=== PATIENT | male | born 1990 | race African-American/Black ===

== ENCOUNTER 2016-05-12 08:59 | Emergency (ER) | payer OTHER ==
[~2016-05-12] VITALS: Ht 180.3 cm; Wt 97.5 kg
[2016-05-12 09:26] VITALS: BP 124/62
--- NOTE | 2016-05-12 09:31 | PHYS DOC ---
Past Medical History Past Medical History: No Pertinent History Past Surgical History: No Surgical History Alcohol Use: None Drug Use: None Adult General Chief Complaint Chief Complaint: SHOULDER INJURY [facility] HPI Patient is a 26 year old male who presents with injury. He states he's had issues over the years with his left shoulder hurting him and then Tuesday was playing football and he went one way and his opponent with the other and he twisted his arm/shoulder on his left side. He states been bothering him since then. He's been taking Advil without any relief. He states it's his top and posterior aspect of his shoulder that hurts and is made worse with repetitive motion such as lifting of which she has to do at work. He denies any numbness or tingling or weakness in his forearm. Review of Systems Review of Systems Constitutional: Denies fever or chills [] Eyes: Denies change in visual acuity, redness, or eye pain [] HENT: Denies nasal congestion or sore throat [] Respiratory: Denies cough or shortness of breath [] Cardiovascular: No additional information not addressed in HPI [] GI: Denies abdominal pain, nausea, vomiting, bloody stools or diarrhea [] : Denies dysuria or hematuria [] Musculoskeletal: Denies back pain positive for left shoulder pain Integument: Denies rash or skin lesions [] Neurologic: Denies headache, focal weakness or sensory changes [] Endocrine: Denies polyuria or polydipsia [] Allergies Allergies Allergies Coded Allergies Type Severity Reaction Last Updated Verified No Known Drug Allergies 05/12/16 No Physical Exam Physical Exam Constitutional: Well developed, well nourished, no acute distress, non-toxic appearance. [] HENT: Normocephalic, atraumatic, bilateral external ears normal, oropharynx moist, no oral exudates, nose normal. [] Eyes: PERRLA, EOMI, conjunctiva normal, no discharge. [] Neck: Normal range of motion, no tenderness, supple, no stridor. [] Cardiovascular:Heart rate regular rhythm, no murmur [] Lungs & Thorax: Bilateral breath sounds clear to auscultation [] Abdomen: Bowel sounds normal, soft, no tenderness, no masses, no pulsatile masses. [] Skin: Warm, dry, no erythema, no rash. [] Back: No tenderness, no CVA tenderness. [] Extremities: No tenderness, full range of motion of the left shoulder, no cyanosis, no clubbing, ROM intact, no edema, sensation intact to light touch, strength 5 out of 5 with abducting abducting flexion and extension of left arm and forearm. [] Neurologic: Alert and oriented X 3, normal motor function, normal sensory function, no focal deficits noted. [] Psychologic: Affect normal, judgement normal, mood normal. [] Current Patient Data Vital Signs Vital Signs Date Time Temp Pulse Resp B/P Pulse Ox O2 Delivery O2 Flow Rate FiO2 05/12/16 09:26 98.1 66 20 98 Room Air 98.1 EKG EKG [] Radiology/Procedures Radiology/Procedures [facility] [address] [place] [address] IMAGING REPORT Signed PATIENT: JOCE QUICK ACCOUNT: [id number] : 1990 LOCATION: ER AGE: 26 SEX: M EXAM STATUS: REG ER ORD. PHYSICIAN: STACEY ROJAS NP REASON: left shoulder pain with injury PROCEDURE: SHOULDER 2+V LEFT Left shoulder, 3 views, 05/12/2016: History: Shoulder injury, pain No fracture or dislocation is identified. The periarticular soft tissues are unremarkable. IMPRESSION: No significant left shoulder abnormality is detected. DICTATED and SIGNED BY: SHAUN ROCK MD DATE: 05/12/16 0940 CC: STACEY ROJAS NP; NO PCP ~ Impressions: Left shoulder pain Course & Med Decision Making Course & Med Decision Making Pertinent Labs and Imaging studies reviewed. (See chart for details) x-rays do not show any acute maladies his left shoulder. Exam is benign. He's likely has a rotator cuff injury or strain. He'll need to follow-up with his primary care physician within a month and if his shoulder is still bothering him he'll need a follow-up with him and likely have an MRI at that time. He can use 600 mg Advil every 8 hours for next 4-5 days, use ice or heat as preferred, he take [place] which narcotic pain medicine as directed. He is instructed not to drive his car while taking this medicine as it can impair judgment and make him sleepy. He is return back to ER for severe pain, weakness in his arm his fingers turned blue numb or has other concerns. Mary Lou Disclaimer Mary Lou Disclaimer This electronic medical record was generated, in whole or in part, using a voice recognition dictation system. Departure Departure Impression: Primary Impression: Left shoulder pain Disposition: HOME, SELF-CARE Condition: STABLE Patient Instructions: Rotator Cuff Injury Additional Instructions: You should follow up with primary care physician within next few weeks. If your shoulder still bothered you follow up sooner. You might need an MRI of your shoulder to see if there is any soft tissue injuries. The x-ray did not show anything broken in the emergency department. He can take 600 mg of Advil every 8 hours for next 4-5 days. Please drink. Last water while taking this high dose of medicine. He can take [place] which narcotic pain medicine as directed for pain. [place] can impair judgment and make you sleepy so please do not drive her car while taking this medicine. If pain gets worse, he have numbness tingling in her fingers, he fingers turning blue or your arm is weak. Other concerns please return back to emergency department. Scripts Hydrocodone/Apap 5-325 ([place] 5-325 Tablet)1 Each Tablet1-2 Tab PO Q6HRS PRN PAIN #14 TAB Prov:LAYLA COOMBS MD 05/12/16 LAYLA COOMBS MD May 12, 2016 09:31
--- NOTE | 2016-05-12 09:44 | RAD ---
Left shoulder, 3 views, 05/12/2016: History: Shoulder injury, pain No fracture or dislocation is identified. The periarticular soft tissues are unremarkable. IMPRESSION: No significant left shoulder abnormality is detected.
[2016-05-12] MEDS ORDERED: HYDR-971 PO (10:24)
== END 2016-05-12 10:39 | disposition home or self-care (01) ==
LOC: ER 08:59
DX: M25.512 Pain in left shoulder (principal); X50.3XXA Overexertion from repetitive movements, initial encounter; Y93.61 Activity, american tackle football; Y92.321 Football field as the place of occurrence of the external cause; Y99.8 Other external cause status
CPT/HCPCS: 73030; 99284

== ENCOUNTER 2017-06-29 16:33 | Emergency (ER) | payer SELFPAY, OTHER ==
[2017-06-29] MEDS: IBUPROFEN 600 MG TABLET. PO (17:57)
[2017-06-30 09:51] LABS: NEGATIVE OBC STREP NEG; POSITIVE OBC STREP POS
== END 2017-06-29 18:12 | disposition home or self-care (01) ==
LOC: ER 16:33
DX: J02.0 Streptococcal pharyngitis (principal); H92.01 Otalgia, right ear
CPT/HCPCS: 87880; 99283

== ENCOUNTER 2018-10-24 06:51 | Emergency (ER) | payer SELFPAY ==
[~2018-10-24] VITALS: Ht 182.9 cm; Wt 95.3 kg
[~2018-10-24 06:51] MED LIST: AMOX875T PO; HYDR-3164 PO
[2018-10-24 07:00] VITALS: BP 128/71
[2018-10-24] MEDS ORDERED: CYCL10TA2 PO (07:37)
--- NOTE | 2018-10-24 07:38 | PHYS DOC ---
Past Medical History Past Medical History: No Pertinent History Past Surgical History: No Surgical History Alcohol Use: None Drug Use: None Adult General Chief Complaint Chief Complaint: Neck Pain HPI HPI Patient is a previously healthy 28-year-old male who presents to the emergency department for evaluation of persistent right-sided neck pain, which has developed over the past 3 days. He denies any injuries, and the pain is in the right lateral neck, worsened by rotation, and somewhat worsened by flexion as well, of his neck. He denies any fevers, chills, headache, numbness, weakness, or any other painful areas. Other than movement of his neck, there are no alleviating or exacerbating factors to his symptoms. He has been trying to take Tylenol without improvement in his symptoms. Review of Systems Review of Systems Constitutional: Denies fever or chills [] Eyes: Denies change in visual acuity, redness, or eye pain [] HENT: Denies nasal congestion or sore throat. Denies voice changes. [] Respiratory: Denies cough or shortness of breath [] Cardiovascular: The patient denies any shortness of breath, chest pain, palpitations, or orthopnea [] GI: Denies abdominal pain, nausea, vomiting, bloody stools or diarrhea [] : Denies dysuria or hematuria [] Musculoskeletal: Denies back pain or joint pain, except as noted in the history of present illness [] Integument: Denies rash or skin lesions [] Neurologic: Denies headache, focal weakness or sensory changes [] Allergies Allergies Allergies Coded Allergies Type Severity Reaction Last Updated Verified No Known Drug Allergies 05/12/16 No Physical Exam Physical Exam PHYSICAL EXAM: CONSTITUTIONAL: Well developed, well nourished HEAD: normocephalic, atraumatic EENT: PERRL, EOMI. Conjunctivae normal color, sclerae non-icteric; moist mucous membranes. The oropharynx is unremarkable. NECK: Supple; no meningismus. There are no carotid bruits. There is no tenderness to palpation to the anterior neck soft tissues or larynx. The vascular track anteriorly is nontender. There is no bony tenderness to palpation to the posterior cervical spine. On the right lateral neck, into the right trapezius muscle, there is mild tenderness to palpation without palpable mass, or definite muscle spasm. Range of motion of the neck is mildly limited secondary to pain, but the patient is able to flex and rotate his neck slowly, although it is uncomfortable to do so. Rightward rotation seems to cause more discomfort and leftward rotation. The tenderness to palpation is mild. The skin of the neck is unremarkable. LUNGS: Lungs CTA, breathing even and unlabored. Normal air movement. HEART: Regular rate and rhythm, no murmur CHEST: No deformity; non-tender ABDOMEN: The abdomen is soft, and non-tender, no masses or bruits. EXTREM: Normal ROM; no deformity, no calf tenderness. Normal pulses palpable in all extremities. There is no pedal edema. SKIN: No rash; no diaphoresis NEURO: Alert; normal speech and cognition; CN's grossly intact; strength grossly intact without focal deficit. BACK: No CVA TTP. Current Patient Data Vital Signs Vital Signs Date Time Temp Pulse Resp B/P (MAP) Pulse Ox O2 Delivery O2 Flow Rate FiO2 10/24/18 07:00 97.9 91 20 128/71 (90) 100 Room Air 97.9 EKG EKG [] Radiology/Procedures Radiology/Procedures [] Course & Med Decision Making Course & Med Decision Making Patient suspects that his pain is primarily due to a muscle strain, and although he does not have significant tenderness on exam he does not have any other concerning findings on exam and I share his suspicion. I discussed therapeutic trial of muscle relaxers, the use of NSAIDs, the need for close follow-up, and return precautions. Dragon Disclaimer Dragon Disclaimer This electronic medical record was generated, in whole or in part, using a voice recognition dictation system. Departure Departure Impression: Primary Impression: Neck pain Disposition: 01 HOME, SELF-CARE Condition: STABLE Patient Instructions: Cervical Sprain Additional Instructions: Ibuprofen 400-600 mg every 6 hours may help improve your symptoms. Applying a heating pad to the affected area may help improve your symptoms. The prescribed medications may cause drowsiness-use caution while taking. Use the provided list of primary care providers to find a primary care physician to arrange follow-up. Scripts Cyclobenzaprine Hcl (CYCLOBENZAPRINE HCL) 10 Mg Tablet 1 TAB PO TID PRN for PAIN, #30 TAB Prov: BEN SANTANA MD 10/24/18 BEN SANTANA MD Oct 24, 2018 07:38
== END 2018-10-24 07:48 | disposition home or self-care (01) ==
LOC: ER 06:51
DX: M54.2 Cervicalgia (principal)
CPT/HCPCS: 99283